=== PATIENT | male | born 2005 | race Caucasian/White ===

== ENCOUNTER 2023-09-25 11:19 | Outpatient (CLI) | payer BC | END 2023-09-25 11:20 | disposition home or self-care (01) | LOC: SCSRAD 11:19 | PROVIDERS: ATTEND Pediatrics | DX: J18.9 Pneumonia, unspecified organism (principal); R91.8 Other nonspecific abnormal finding of lung field | CPT/HCPCS: 71046 ==

== ENCOUNTER 2024-11-10 13:06 | Outpatient (CLI) | payer OTHER | END 2024-11-10 13:07 | disposition home or self-care (01) | LOC: BICRAD 13:06 | PROVIDERS: ATTEND Internal Medicine | DX: M54.50 Low back pain, unspecified (principal) | CPT/HCPCS: 72100 ==

== ENCOUNTER 2025-02-09 10:05 | Day surgery (SDC) | payer MEDICAID ==
[2025-02-06 11:39] VITALS: BMI 20.4
[2025-02-09 12:24] LABS: #Basophils 0.10 10x3/uL (0.0-0.2); #Eosinophils 0.03 10x3/uL (0.0-0.7); #Monocytes 0.66 10x3/uL (0.11-0.59); #Neutrophils 6.89 10x3/uL (1.40-6.50); %Basophils 0.9 % (0.0-1.0); %Eosinophils 0.3 % (0.0-10.0); %Lymphocytes 26.7 % (21.0-51.0); %Monocytes 6.3 % (0.0-10.0); %Neutrophils 65.2 % (42.0-75.0); Hematocrit 48.7 % (42.0-52.0); Hemoglobin 16.3 g/dL (14.0-18.0); Mean Corpuscular Hemoglobin 31.4 pg (27.0-31.0); Mean Corpuscular Volume 93.8 fL (78.0-98.0); Platelet Count 214 10x3/uL (130-400); Red Blood Cell (RBC) Count 5.19 mill/uL (4.70-6.10); White Blood Cell (WBC) Count 10.56 10x3/uL (4.8-10.8)
[2025-02-09 12:47] LABS: Anion Gap 10 mmol/L (10-20); BUN (Urea Nitrogen) 13 mg/dL (8.9-20.6); Calc. Creatinine Clearance 103 mL/min (70-130); Calcium 9.6 mg/dL (7.8-10.44); Carbon Dioxide 28 mmol/L (22-29); Chloride 104 mmol/L (98-107); Glucose 88 mg/dL (70-105); Potassium 4.5 mmol/L (3.5-5.1); Sodium 137 mmol/L (136-145)
== END 2025-02-09 16:30 | disposition home or self-care (01) ==
LOC: MRI 10:05
PROVIDERS: ATTEND Family Medicine Sports Medicine
DX: M43.06 Spondylolysis, lumbar region (principal); M48.07 Spinal stenosis, lumbosacral region; G47.33 Obstructive sleep apnea (adult) (pediatric); Q90.9 Down syndrome, unspecified; F41.9 Anxiety disorder, unspecified; Z98.890 Other specified postprocedural states
CPT/HCPCS: 72148; 80048; 85025; 93005; 93010; J2250